=== PATIENT | male | born 1995 | race Caucasian/White ===

== ENCOUNTER 2016-06-14 17:19 | Emergency (ER) | payer OTHER ==
--- NOTE | 2016-06-14 17:51 | ED NURSING NOTES ---
Clinical Report - Nurses [facility] [address] [place] [address] 06/14/2016 17:21 Patient: JEREMY GREER TRIAGE Triage time 1740 PM. Acuity: LEVEL 4. Chief Complaint: (possible infection on right ankle and left toes and left hand). Alert. No acute distress. SEPSIS SCREEN: Sepsis Screen. Negative (no infection suspected/documented). --17:47 Kari Escobar R.N. 17:39 06/14/16. BP: 124/78 taken on the left arm, via an automated monitor, while sitting. HR: 100. RR: 16. O2 saturation: 100%. Temp: 98.2 F (oral). Pain level now: 5/10. --17:47 Kari Escobar R.N. Weight: 74.8 kg stated. Height/Length: 75 inches Per Patient. BMI: 20.6. --17:41 Kari Escobar R.N. Medications None. --17:42 Kari Escobar R.N. Allergies No Known Drug Allergy. --17:42 Kari Escobar R.N. Medication/allergy information source: the patient. --17:47 Kari Escobar R.N. History Arrived by private vehicle. Historian: patient. Primary physician (none). ( Pt states this happened about 1 1/2 weeks ago after released after [facility], noted that right ankle started getting swollen and red, afraid he has MRSA, denies any fever or chills. Here for evaluation). Onset. (1 weeks). No fever, weakness, cough, difficulty breathing or skin rash. Denies muscle aches. Treatment RECREATION ATTENDANT SUPERVISOR: None. PAST MEDICAL HX: Immunizations: status is unknown. SOCIAL HX: Current every day light tobacco smoker- less than 1/2 a pack per day. Occasional alcohol use; consumes liquor occasionally. History of drug use: heroin, marijuana. Recently used drugs days ago. (2). No infectious disease exposure. FALL RISK ASSESSMENT: Fall risk assessment completed. No fall risk identified. NUTRITIONAL RISK ASSESSMENT: The nutritional risk assessment revealed no deficiencies. FUNCTIONAL ASSESSMENT: Functional assessment: no impairments noted. LEARNING NEEDS ASSESSMENT: The learning needs assessment revealed no barriers. SKIN INTEGRITY ASSESSMENT: Skin integrity risk assessment completed. No skin integrity risk identified. --17:47 Kari Escobar R.N. PROBLEMS: no known problems. ADDITIONAL SURGERIES: Knee Surgery. --17:43 Kari Escobar R.N. Interventions ID band on patient. --17:47 Kari Escobar R.N. PHYSICAL ASSESSMENT Ambulatory to room. GENERAL / NEURO / PSYCH: Alert. Oriented X 4. Appears in no acute distress. RESPIRATORY: Respirations not labored. SKIN: Skin intact. Skin is warm and dry. Normal skin turgor. --17:48 Kari Escobar R.N. NURSING PROGRESS NOTES The initial plan of care for this patient has been created This plan of care was discussed with the patient. Reassurance given. Two patient identifiers checked. Call light placed in reach. Side rails up x 1. Bed placed in lowest position. Brakes of bed on. --17:48 Kari Escobar R.N. 17:57 06/14/2016 Keflex (Cephalexin) PO Tablets 500 mg given. Allergies verified and confirmed 5 rights. --17:57 Kari Escobar R.N. 17:57 06/14/2016 Bactrim DS (Sulfamethoxazole-TMP DS) PO Tablets 1 tab given. Allergies verified and confirmed 5 rights. --17:57 Kari Escobar R.N. 17:58 06/14/2016 TDAP IM 0.5 mL given. (Lot#: [id number], expiration date: 02/04/2017, Cleaning Specialist: sanofi pasteur). Given in the right deltoid. Allergies verified and confirmed 5 rights. Vaccine information statement provided to the patient. --17:58 Kari Escobar R.N. DISPOSITION / DISCHARGE Departure time: 1805 PM. Condition at departure: stable. The goals identified in the patient's plan of care were met. No learning barriers present. Discharge instructions provided and reviewed with the patient. Reviewed warnings. Reviewed medication(s) side effects, precautions, dosing and course information. Prescription(s) given to the patient. Reviewed wound care instructions (warm compresses). Activity restrictions (minimal use of injured extremity and rest) reviewed. Patient verbalized understanding. Written instructions provided in Estonian. No diet instructions. The patient was discharged by the physician assistant inventory manager. He was discharged home and accompanied by spouse. He left the Emergency Department ambulatory and via private vehicle. Cheesemaker Helper driving. FALL RISK ASSESSMENT: Fall risk assessment completed. No fall risk identified. --18:06 Kari Escobar R.N. 18:03 06/14/16. BP: 125/85 (regular adult cuff) taken on the left arm, via an automated monitor, while sitting. HR: 100. RR: 18. O2 saturation: 99% on room air. Temp: 98.2 F (oral). Pain level now: 09/09. --18:06 Kari Escobar R.N. Locked/Released at 06/14/2016 18:07 by Kari Escobar R.N.
--- NOTE | 2016-06-14 17:51 | ED CLINICAL REPORT ---
Clinical Report - Physicians/Mid Levels [facility] [address] [place] [address] 06/14/2016 17:21 Patient: JEREMY GREER Time Seen: 18:23 Jun 14 2016. Arrived- By private vehicle. Historian- patient. HISTORY OF PRESENT ILLNESS Chief Complaint: SKIN RASH. This started 7 days and is still present. It is described as painful. It has been located on the right lower extremity. No cause has been identified. (patient reports recently in long-term, has had a rash since. Denies any drainage. Denies any trauma. Denies any fevers. Denies any history of MRSA, does use drugs.). REVIEW OF SYSTEMS No fever, chills, difficulty breathing, hoarseness or nausea. No difficulty with urination. All systems otherwise negative, except as recorded above. PAST HISTORY Tetanus immunization status is unknown. SOCIAL HISTORY Smoker- current status unknown. Alcohol use. History of IV drug use. ADDITIONAL NOTES The nursing notes have been reviewed. PHYSICAL EXAM Vital Signs: 06/14/2016 17:39 BP: 124/78. HR: 100. RR: 16. O2 saturation: 100%. Temp: 98.2 F. Pain level now: 5/10. ENT: Ears normal. CVS: Normal heart rate and rhythm. Heart sounds normal. Respiratory: No respiratory distress. Breath sounds normal. Skin: Skin warm. Erythema (mild lateral aspect). Small area of cellulitis with tenderness, erythema and warmth (medial aspect of right foot into the plantar surface). There is warmth and tenderness. PROGRESS AND PROCEDURES Course of Care: Signs of cellulites, with good distal sensation, and good pulse. Given recent long-term, concern for MRSA. NO signs of abscess. Stable. NO injury. 06/14/2016 18:03 BP: 125/85. HR: 100. RR: 18. O2 saturation: 99%. Temp: 98.2 F. Pain level now: 5/10. Patient is stable. Patient/family counseled. Disposition: Discharged. CLINICAL IMPRESSION Cellulitis of the right foot. INSTRUCTIONS Prescription Medications: Bactrim DS 800 mg / 160 mg: take 1 tablet orally every 12 hours for 10 days. No refill. Substitution is permissible. Keflex 500 mg: take 1 capsule orally every 8 hours for 10 days. Substitution is permissible. Follow-up: Follow up with your doctor in three days. (Electronically signed by Ambar Mireles P.A.-C 06/14/2016 18:26)
--- NOTE | 2016-06-14 17:51 | ED ORDER SUMMARY ---
..... Patient: JEREMY GREER OrderSheet [facility] VisitID: [id number] [address] [place] [address] 20y, M Registration Date/Time: 06/14/2016 ORDER SHEET Weight: 74.8 kg (stated) Allergies: No Known Drug Allergy GENERAL ORDERS: MEDICATION ORDERS: Bactrim DS PO (Tablet 800-160 mg) 1 tab (NOW) (17:50 06/14/2016 EKoroleva P.A.-C) (17:57 EHkatie R.N.) Keflex PO 500 mg (NOW) (17:50 06/14/2016 EKoroleva P.A.-C) (17:57 EHkatie R.N.) Tdap IM 0.5 mL (NOW, per protocol) (17:50 06/14/2016 EKoroleva P.A.-C) (17:58 EHkatie R.N.) IV FLUIDS: ORDER SHEET NOTES: [Electronically signed by Kari Escobar R.N. (18:07 06/14/2016)] [Electronically signed by Ambar Mireles PDelvisA.-C (18:26 06/14/2016)] [Electronically locked/signed by Kari Escobar R.N. (18:07 06/14/2016)]
--- NOTE | 2016-06-14 17:51 | ED ORDER SUMMARY ---
..... Patient: JEREMY GREER OrderSheet [facility] VisitID: [id number] [address] [place] [address] 20y, M Registration Date/Time: 06/14/2016 ORDER SHEET Weight: 74.8 kg (stated) Allergies: No Known Drug Allergy GENERAL ORDERS: MEDICATION ORDERS: Bactrim DS PO (Tablet 800-160 mg) 1 tab (NOW) (17:50 06/14/2016 EKoroleva P.A.-C) (17:57 EHkatie R.N.) Keflex PO 500 mg (NOW) (17:50 06/14/2016 EKoroleva P.A.-C) (17:57 EHkatie R.N.) Tdap IM 0.5 mL (NOW, per protocol) (17:50 06/14/2016 EKoroleva P.A.-C) (17:58 EHkatie R.N.) IV FLUIDS: ORDER SHEET NOTES: [Electronically signed by Kari Escobar R.N. (18:07 06/14/2016)] [Electronically signed by Ambar Mireles PDelvisA.-C (18:26 06/14/2016)] [Electronically locked/signed by Kari Escobar R.N. (18:07 06/14/2016)]
--- NOTE | 2016-06-14 17:51 | ED NURSING NOTES ---
Clinical Report - Nurses [facility] [address] [place] [address] 06/14/2016 17:21 Patient: JEREMY GREER TRIAGE Triage time 1740 PM. Acuity: LEVEL 4. Chief Complaint: (possible infection on right ankle and left toes and left hand). Alert. No acute distress. SEPSIS SCREEN: Sepsis Screen. Negative (no infection suspected/documented). --17:47 Kari Escobar R.N. 17:39 06/14/16. BP: 124/78 taken on the left arm, via an automated monitor, while sitting. HR: 100. RR: 16. O2 saturation: 100%. Temp: 98.2 F (oral). Pain level now: 5/10. --17:47 Kari Escobar R.N. Weight: 74.8 kg stated. Height/Length: 75 inches Per Patient. BMI: 20.6. --17:41 Kari Escobar R.N. Medications None. --17:42 Kari Escobar R.N. Allergies No Known Drug Allergy. --17:42 Kari Escobar R.N. Medication/allergy information source: the patient. --17:47 Kari Escobar R.N. History Arrived by private vehicle. Historian: patient. Primary physician (none). ( Pt states this happened about 1 1/2 weeks ago after released after [facility], noted that right ankle started getting swollen and red, afraid he has MRSA, denies any fever or chills. Here for evaluation). Onset. (1 weeks). No fever, weakness, cough, difficulty breathing or skin rash. Denies muscle aches. Treatment MORTGAGE ADVISOR: None. PAST MEDICAL HX: Immunizations: status is unknown. SOCIAL HX: Current every day light tobacco smoker- less than 1/2 a pack per day. Occasional alcohol use; consumes liquor occasionally. History of drug use: heroin, marijuana. Recently used drugs days ago. (2). No infectious disease exposure. FALL RISK ASSESSMENT: Fall risk assessment completed. No fall risk identified. NUTRITIONAL RISK ASSESSMENT: The nutritional risk assessment revealed no deficiencies. FUNCTIONAL ASSESSMENT: Functional assessment: no impairments noted. LEARNING NEEDS ASSESSMENT: The learning needs assessment revealed no barriers. SKIN INTEGRITY ASSESSMENT: Skin integrity risk assessment completed. No skin integrity risk identified. --17:47 Kari Escobar R.N. PROBLEMS: no known problems. ADDITIONAL SURGERIES: Knee Surgery. --17:43 Kari Escobar R.N. Interventions ID band on patient. --17:47 Kari Escobar R.N. PHYSICAL ASSESSMENT Ambulatory to room. GENERAL / NEURO / PSYCH: Alert. Oriented X 4. Appears in no acute distress. RESPIRATORY: Respirations not labored. SKIN: Skin intact. Skin is warm and dry. Normal skin turgor. --17:48 Kari Escobar R.N. NURSING PROGRESS NOTES The initial plan of care for this patient has been created This plan of care was discussed with the patient. Reassurance given. Two patient identifiers checked. Call light placed in reach. Side rails up x 1. Bed placed in lowest position. Brakes of bed on. --17:48 Kari Escobar R.N. 17:57 06/14/2016 Keflex (Cephalexin) PO Tablets 500 mg given. Allergies verified and confirmed 5 rights. --17:57 Kari Escobar R.N. 17:57 06/14/2016 Bactrim DS (Sulfamethoxazole-TMP DS) PO Tablets 1 tab given. Allergies verified and confirmed 5 rights. --17:57 Kari Escobar R.N. 17:58 06/14/2016 TDAP IM 0.5 mL given. (Lot#: [id number], expiration date: 02/04/2017, Captain Room Service: sanofi pasteur). Given in the right deltoid. Allergies verified and confirmed 5 rights. Vaccine information statement provided to the patient. --17:58 Kari Escobar R.N. DISPOSITION / DISCHARGE Departure time: 1805 PM. Condition at departure: stable. The goals identified in the patient's plan of care were met. No learning barriers present. Discharge instructions provided and reviewed with the patient. Reviewed warnings. Reviewed medication(s) side effects, precautions, dosing and course information. Prescription(s) given to the patient. Reviewed wound care instructions (warm compresses). Activity restrictions (minimal use of injured extremity and rest) reviewed. Patient verbalized understanding. Written instructions provided in Bengali. No diet instructions. The patient was discharged by the physician assistant warehouse manager. He was discharged home and accompanied by spouse. He left the Emergency Department ambulatory and via private vehicle. Log Yard Manager driving. FALL RISK ASSESSMENT: Fall risk assessment completed. No fall risk identified. --18:06 Kari Escobar R.N. 18:03 06/14/16. BP: 125/85 (regular adult cuff) taken on the left arm, via an automated monitor, while sitting. HR: 100. RR: 18. O2 saturation: 99% on room air. Temp: 98.2 F (oral). Pain level now: 09/09. --18:06 Kari Escobar R.N. Locked/Released at 06/14/2016 18:07 by Kari Escobar R.N.
--- NOTE | 2016-06-14 17:51 | ED CLINICAL REPORT ---
Clinical Report - Physicians/Mid Levels [facility] [address] [place] [address] 06/14/2016 17:21 Patient: JEREMY GREER Time Seen: 18:23 Jun 14 2016. Arrived- By private vehicle. Historian- patient. HISTORY OF PRESENT ILLNESS Chief Complaint: SKIN RASH. This started 7 days and is still present. It is described as painful. It has been located on the right lower extremity. No cause has been identified. (patient reports recently in fpc, has had a rash since. Denies any drainage. Denies any trauma. Denies any fevers. Denies any history of MRSA, does use drugs.). REVIEW OF SYSTEMS No fever, chills, difficulty breathing, hoarseness or nausea. No difficulty with urination. All systems otherwise negative, except as recorded above. PAST HISTORY Tetanus immunization status is unknown. SOCIAL HISTORY Smoker- current status unknown. Alcohol use. History of IV drug use. ADDITIONAL NOTES The nursing notes have been reviewed. PHYSICAL EXAM Vital Signs: 06/14/2016 17:39 BP: 124/78. HR: 100. RR: 16. O2 saturation: 100%. Temp: 98.2 F. Pain level now: 5/10. ENT: Ears normal. CVS: Normal heart rate and rhythm. Heart sounds normal. Respiratory: No respiratory distress. Breath sounds normal. Skin: Skin warm. Erythema (mild lateral aspect). Small area of cellulitis with tenderness, erythema and warmth (medial aspect of right foot into the plantar surface). There is warmth and tenderness. PROGRESS AND PROCEDURES Course of Care: Signs of cellulites, with good distal sensation, and good pulse. Given recent fpc, concern for MRSA. NO signs of abscess. Stable. NO injury. 06/14/2016 18:03 BP: 125/85. HR: 100. RR: 18. O2 saturation: 99%. Temp: 98.2 F. Pain level now: 5/10. Patient is stable. Patient/family counseled. Disposition: Discharged. CLINICAL IMPRESSION Cellulitis of the right foot. INSTRUCTIONS Prescription Medications: Bactrim DS 800 mg / 160 mg: take 1 tablet orally every 12 hours for 10 days. No refill. Substitution is permissible. Keflex 500 mg: take 1 capsule orally every 8 hours for 10 days. Substitution is permissible. Follow-up: Follow up with your doctor in three days. (Electronically signed by Ambar Mireles P.A.-C 06/14/2016 18:26)
--- NOTE | 2016-06-14 18:26 | ED DISCHARGE INSTRUCTIONS ---
Patient: JEREMY GREER General Instructions [facility] VisitID: [id number] [place] [address] 20y, M Registration Date/Time: 06/14/2016 Cellulitis of the right foot. INSTRUCTIONS Prescription Medications: Bactrim DS 800 mg / 160 mg: take 1 tablet orally every 12 hours for 10 days. No refill. Substitution is permissible. Keflex 500 mg: take 1 capsule orally every 8 hours for 10 days. Substitution is permissible. Follow-up: Follow up with your doctor in three days. ADDITIONAL INFORMATION Cellulitis You have an infection of the skin known as cellulitis. This usually starts with a scrape, cut, insect bite, blister or other opening in the skin which becomes infected. This is a serious condition. It must be watched closely to be sure the infection is not spreading. With antibiotic treatment, the size of the red area will gradually shrink in size until the skin returns to normal. This will take 7-10 days. The red area should never increase in size once the antibiotic medicine has been started. Occasionally, an infection will be resistant to one antibiotic and another one will have to be used. Home Care: 1) Limit the use of the affected part, since excess movement can cause the infection to spread. 2) If the infection is on your leg, walk as little as possible during the first few days of the treatment. Keep your leg elevated while sitting. This will reduce swelling. 3) Take all of the antibiotic medicine exactly as directed until it is gone. Be careful not to miss any doses, especially during the first seven days. Follow Up with your doctor or this facility as directed. Check the infected area daily for the warning signs listed below. Get Prompt Medical Attention if any of the following occur: -- Spreading area of redness -- Increasing swelling or pain -- Appearance of pus or drainage -- Fever over 100.4 F (38.0 C) oral, or over 101.4 F (38.6 C) rectal, after two days on antibiotics Sulfamethoxazole, Trimethoprim Oral tablet What is this medicine? SULFAMETHOXAZOLE; TRIMETHOPRIM or SMX-TMP (suhl fuh meth OK margarita zohl; trye METH oh prim) is a combination of a sulfonamide antibiotic and a second antibiotic, trimethoprim. It is used to treat or prevent certain kinds of bacterial infections. It will not work for colds, flu, or other viral infections. How should I use this medicine? Take this medicine by mouth with a full glass of water. Follow the directions on the prescription label. Take your medicine at regular intervals. Do not take it more often than directed. Do not skip doses or stop your medicine early. Talk to your manager background regarding the use of this medicine in children. Special care may be needed. This medicine has been used in children as young as 2 months of age. What side effects may I notice from receiving this medicine? Side effects that you should report to your doctor or health customer care consultant as soon as possible: allergic reactions like skin rash or hives, swelling of the face, lips, or tongue breathing problems fever or chills, sore throat irregular heartbeat, chest pain joint or muscle pain pain or difficulty passing urine red pinpoint spots on skin redness, blistering, peeling or loosening of the skin, including inside the mouth unusual bleeding or bruising unusually weak or tired yellowing of the eyes or skin Side effects that usually do not require medical attention (report to your doctor or health customer care consultant if they continue or are bothersome): diarrhea dizziness headache loss of appetite nausea, vomiting nervousness What may interact with this medicine? Do not take this medicine with any of the following medications: aminobenzoate potassium dofetilide metronidazole This medicine may also interact with the following medications: EWA inhibitors like benazepril, enalapril, lisinopril, and ramipril cyclosporine digoxin diuretics indomethacin medicines for diabetes methenamine methotrexate phenytoin potassium supplements pyrimethamine sulfinpyrazone tricyclic antidepressants warfarin What if I miss a dose? If you miss a dose, take it as soon as you can. If it is almost time for your next dose, take only that dose. Do not take double or extra doses. Where should I keep my medicine? Keep out of the reach of children. Store at room temperature between 20 to 25 degrees C (68 to 77 degrees F). Protect from light. Throw away any unused medicine after the expiration date. What should I tell my health care provider before I take this medicine? They need to know if you have any of these conditions: anemia asthma being treated with anticonvulsants if you frequently drink alcohol containing drinks kidney disease liver disease low level of folic acid or oztsecl-1-jekullrop dehydrogenase poor nutrition or malabsorption porphyria severe allergies thyroid disorder an unusual or allergic reaction to sulfamethoxazole, trimethoprim, sulfa drugs, other medicines, foods, dyes, or preservatives or trying to get breast-feeding What should I watch for while using this medicine? Tell your doctor or health customer care consultant if your symptoms do not improve. Drink several glasses of water a day to reduce the risk of kidney problems. Do not treat diarrhea with over the counter products. Contact your doctor if you have diarrhea that lasts more than 2 days or if it is severe and watery. This medicine can make you more sensitive to the sun. Keep out of the sun. If you cannot avoid being in the sun, wear protective clothing and use a sunscreen. Do not use sun lamps or tanning beds/booths. Cephalexin Monohydrate Oral tablet What is this medicine? CEPHALEXIN (sef a ANTONIO in) is a cephalosporin antibiotic. It is used to treat certain kinds of bacterial infections It will not work for colds, flu, or other viral infections. How should I use this medicine? Take this medicine by mouth with a full glass of water. Follow the directions on the prescription label. This medicine can be taken with or without food. Take your medicine at regular intervals. Do not take your medicine more often than directed. Take all of your medicine as directed even if you think you are better. Do not skip doses or stop your medicine early. Talk to your manager background regarding the use of this medicine in children. While this drug may be prescribed for selected conditions, precautions do apply. What side effects may I notice from receiving this medicine? Side effects that you should report to your doctor or health customer care consultant as soon as possible: allergic reactions like skin rash, itching or hives, swelling of the face, lips, or tongue breathing problems pain or trouble passing urine redness, blistering, peeling or loosening of the skin, including inside the mouth severe or watery diarrhea unusually weak or tired yellowing of the eyes, skin Side effects that usually do not require medical attention (report to your doctor or health customer care consultant if they continue or are bothersome): gas or heartburn genital or anal irritation headache joint or muscle pain nausea, vomiting What may interact with this medicine? probenecid some other antibiotics What if I miss a dose? If you miss a dose, take it as soon as you can. If it is almost time for your next dose, take only that dose. Do not take double or extra doses. There should be at least 4 to 6 hours between doses. Where should I keep my medicine? Keep out of the reach of children. Store at room temperature between 59 and 86 degrees F (15 and 30 degrees C). Throw away any unused medicine after the expiration date. What should I tell my health care provider before I take this medicine? They need to know if you have any of these conditions: kidney disease stomach or intestine problems, especially colitis an unusual or allergic reaction to cephalexin, other cephalosporins, penicillins, other antibiotics, medicines, foods, dyes or preservatives or trying to get breast-feeding What should I watch for while using this medicine? Tell your doctor or health customer care consultant if your symptoms do not begin to improve in a few days. Do not treat diarrhea with over the counter products. Contact your doctor if you have diarrhea that lasts more than 2 days or if it is severe and watery. If you have diabetes, you may get a false-positive result for sugar in your urine. Check with your doctor or health customer care consultant. You have been given the following additional information: Cellulitis Sulfamethoxazole, Trimethoprim Oral tablet Cephalexin Monohydrate Oral tablet (Electronically signed by Ambar Mireles P.A.-C 06/14/2016 18:26)
--- NOTE | 2016-06-14 18:26 | ED DISCHARGE INSTRUCTIONS ---
Patient: JEREMY GREER General Instructions [facility] VisitID: [id number] [place] [address] 20y, M Registration Date/Time: 06/14/2016 Cellulitis of the right foot. INSTRUCTIONS Prescription Medications: Bactrim DS 800 mg / 160 mg: take 1 tablet orally every 12 hours for 10 days. No refill. Substitution is permissible. Keflex 500 mg: take 1 capsule orally every 8 hours for 10 days. Substitution is permissible. Follow-up: Follow up with your doctor in three days. ADDITIONAL INFORMATION Cellulitis You have an infection of the skin known as cellulitis. This usually starts with a scrape, cut, insect bite, blister or other opening in the skin which becomes infected. This is a serious condition. It must be watched closely to be sure the infection is not spreading. With antibiotic treatment, the size of the red area will gradually shrink in size until the skin returns to normal. This will take 7-10 days. The red area should never increase in size once the antibiotic medicine has been started. Occasionally, an infection will be resistant to one antibiotic and another one will have to be used. Home Care: 1) Limit the use of the affected part, since excess movement can cause the infection to spread. 2) If the infection is on your leg, walk as little as possible during the first few days of the treatment. Keep your leg elevated while sitting. This will reduce swelling. 3) Take all of the antibiotic medicine exactly as directed until it is gone. Be careful not to miss any doses, especially during the first seven days. Follow Up with your doctor or this facility as directed. Check the infected area daily for the warning signs listed below. Get Prompt Medical Attention if any of the following occur: -- Spreading area of redness -- Increasing swelling or pain -- Appearance of pus or drainage -- Fever over 100.4 F (38.0 C) oral, or over 101.4 F (38.6 C) rectal, after two days on antibiotics Sulfamethoxazole, Trimethoprim Oral tablet What is this medicine? SULFAMETHOXAZOLE; TRIMETHOPRIM or SMX-TMP (suhl fuh meth OK margarita zohl; trye METH oh prim) is a combination of a sulfonamide antibiotic and a second antibiotic, trimethoprim. It is used to treat or prevent certain kinds of bacterial infections. It will not work for colds, flu, or other viral infections. How should I use this medicine? Take this medicine by mouth with a full glass of water. Follow the directions on the prescription label. Take your medicine at regular intervals. Do not take it more often than directed. Do not skip doses or stop your medicine early. Talk to your pigment grinder regarding the use of this medicine in children. Special care may be needed. This medicine has been used in children as young as 2 months of age. What side effects may I notice from receiving this medicine? Side effects that you should report to your doctor or health medicare specialist as soon as possible: allergic reactions like skin rash or hives, swelling of the face, lips, or tongue breathing problems fever or chills, sore throat irregular heartbeat, chest pain joint or muscle pain pain or difficulty passing urine red pinpoint spots on skin redness, blistering, peeling or loosening of the skin, including inside the mouth unusual bleeding or bruising unusually weak or tired yellowing of the eyes or skin Side effects that usually do not require medical attention (report to your doctor or health medicare specialist if they continue or are bothersome): diarrhea dizziness headache loss of appetite nausea, vomiting nervousness What may interact with this medicine? Do not take this medicine with any of the following medications: aminobenzoate potassium dofetilide metronidazole This medicine may also interact with the following medications: EWA inhibitors like benazepril, enalapril, lisinopril, and ramipril cyclosporine digoxin diuretics indomethacin medicines for diabetes methenamine methotrexate phenytoin potassium supplements pyrimethamine sulfinpyrazone tricyclic antidepressants warfarin What if I miss a dose? If you miss a dose, take it as soon as you can. If it is almost time for your next dose, take only that dose. Do not take double or extra doses. Where should I keep my medicine? Keep out of the reach of children. Store at room temperature between 20 to 25 degrees C (68 to 77 degrees F). Protect from light. Throw away any unused medicine after the expiration date. What should I tell my health care provider before I take this medicine? They need to know if you have any of these conditions: anemia asthma being treated with anticonvulsants if you frequently drink alcohol containing drinks kidney disease liver disease low level of folic acid or [id number] dehydrogenase poor nutrition or malabsorption porphyria severe allergies thyroid disorder an unusual or allergic reaction to sulfamethoxazole, trimethoprim, sulfa drugs, other medicines, foods, dyes, or preservatives or trying to get breast-feeding What should I watch for while using this medicine? Tell your doctor or health medicare specialist if your symptoms do not improve. Drink several glasses of water a day to reduce the risk of kidney problems. Do not treat diarrhea with over the counter products. Contact your doctor if you have diarrhea that lasts more than 2 days or if it is severe and watery. This medicine can make you more sensitive to the sun. Keep out of the sun. If you cannot avoid being in the sun, wear protective clothing and use a sunscreen. Do not use sun lamps or tanning beds/booths. Cephalexin Monohydrate Oral tablet What is this medicine? CEPHALEXIN (sef a ANTONIO in) is a cephalosporin antibiotic. It is used to treat certain kinds of bacterial infections It will not work for colds, flu, or other viral infections. How should I use this medicine? Take this medicine by mouth with a full glass of water. Follow the directions on the prescription label. This medicine can be taken with or without food. Take your medicine at regular intervals. Do not take your medicine more often than directed. Take all of your medicine as directed even if you think you are better. Do not skip doses or stop your medicine early. Talk to your pigment grinder regarding the use of this medicine in children. While this drug may be prescribed for selected conditions, precautions do apply. What side effects may I notice from receiving this medicine? Side effects that you should report to your doctor or health medicare specialist as soon as possible: allergic reactions like skin rash, itching or hives, swelling of the face, lips, or tongue breathing problems pain or trouble passing urine redness, blistering, peeling or loosening of the skin, including inside the mouth severe or watery diarrhea unusually weak or tired yellowing of the eyes, skin Side effects that usually do not require medical attention (report to your doctor or health medicare specialist if they continue or are bothersome): gas or heartburn genital or anal irritation headache joint or muscle pain nausea, vomiting What may interact with this medicine? probenecid some other antibiotics What if I miss a dose? If you miss a dose, take it as soon as you can. If it is almost time for your next dose, take only that dose. Do not take double or extra doses. There should be at least 4 to 6 hours between doses. Where should I keep my medicine? Keep out of the reach of children. Store at room temperature between 59 and 86 degrees F (15 and 30 degrees C). Throw away any unused medicine after the expiration date. What should I tell my health care provider before I take this medicine? They need to know if you have any of these conditions: kidney disease stomach or intestine problems, especially colitis an unusual or allergic reaction to cephalexin, other cephalosporins, penicillins, other antibiotics, medicines, foods, dyes or preservatives or trying to get breast-feeding What should I watch for while using this medicine? Tell your doctor or health medicare specialist if your symptoms do not begin to improve in a few days. Do not treat diarrhea with over the counter products. Contact your doctor if you have diarrhea that lasts more than 2 days or if it is severe and watery. If you have diabetes, you may get a false-positive result for sugar in your urine. Check with your doctor or health medicare specialist. You have been given the following additional information: Cellulitis Sulfamethoxazole, Trimethoprim Oral tablet Cephalexin Monohydrate Oral tablet (Electronically signed by Ambar Mireles P.A.-C 06/14/2016 18:26)
--- NOTE | 2016-06-14 18:27 | ED MED RECONCILIATION SUMMARY ---
Patient: JEREMY GREER Medication Reconciliation Report [facility] VisitID: [id number] [address] [place] [address] 20y, M Registration Date/Time: 06/14/2016 Weight: 74.8 kg Height/Length: 75 in. BMI: 20.6 ALLERGIES: No Known Drug Allergy The patient's Home Medications are listed below: NONE. The source(s) of the original Home Medication information: patient The following Medications were given to the patient in the Emergency Department: Keflex [PO] PO 500 mg, administered: 06/14/2016 5:57:00 PM Bactrim DS [PO] PO 1 tab, administered: 06/14/2016 5:57:00 PM TDAP [IM] IM 0.5 mL, administered: 06/14/2016 5:58:00 PM The following Medications were prescribed to the patient: Bactrim DS 800 mg / 160 mg: take 1 tablet orally every 12 hours for 10 days. No refill. Substitution is permissible. -- Ambar Mireles PDelvisADelvis-Carol Keflex 500 mg: take 1 capsule orally every 8 hours for 10 days. Substitution is permissible. -- Ambar Mireles P.ADelvis-Carol
--- NOTE | 2016-06-14 18:27 | ED MAR SUMMARY ---
..... Medication Administration Record [facility] [address] [place] [address] Patient: JEREMY GREER Visit ID: [id number] 20y, M Weight: 74.8 kg Height/Length: 75 in BMI: 20.6 ALLERGIES: No Known Drug Allergy Given 17:57 06/14/2016 Kari Escobar RDelvisNDelvis Medication Administered: BACTRIM DS [PO] (SULFAMETHOXAZOLE-TMP DS), Dose: 1 tab Tablets PO. Medication Ordered: Bactrim DS PO (Tablet 800-160 mg) 1 tab (NOW). Given 17:57 06/14/2016 Kari Escobar, R.N. Medication Administered: KEFLEX [PO] (CEPHALEXIN), Dose: 500 mg Tablets PO. Medication Ordered: Keflex PO 500 mg (NOW). Given 17:58 06/14/2016 Kari Escobar, R.N. Medication Administered: TDAP [IM], Dose: 0.5 mL IM. Medication Ordered: Tdap IM 0.5 mL (NOW, per protocol).
--- NOTE | 2016-06-14 18:27 | ED MAR SUMMARY ---
..... Medication Administration Record [facility] [address] [place] [address] Patient: JEREMY GREER Visit ID: [id number] 20y, M Weight: 74.8 kg Height/Length: 75 in BMI: 20.6 ALLERGIES: No Known Drug Allergy Given 17:57 06/14/2016 Kari Escobar RDelvisNDelvis Medication Administered: BACTRIM DS [PO] (SULFAMETHOXAZOLE-TMP DS), Dose: 1 tab Tablets PO. Medication Ordered: Bactrim DS PO (Tablet 800-160 mg) 1 tab (NOW). Given 17:57 06/14/2016 Kari Escobar, R.N. Medication Administered: KEFLEX [PO] (CEPHALEXIN), Dose: 500 mg Tablets PO. Medication Ordered: Keflex PO 500 mg (NOW). Given 17:58 06/14/2016 Kari Escobar, R.N. Medication Administered: TDAP [IM], Dose: 0.5 mL IM. Medication Ordered: Tdap IM 0.5 mL (NOW, per protocol).
--- NOTE | 2016-06-14 18:27 | ED MED RECONCILIATION SUMMARY ---
Patient: JEREMY GREER Medication Reconciliation Report [facility] VisitID: [id number] [address] [place] [address] 20y, M Registration Date/Time: 06/14/2016 Weight: 74.8 kg Height/Length: 75 in. BMI: 20.6 ALLERGIES: No Known Drug Allergy The patient's Home Medications are listed below: NONE. The source(s) of the original Home Medication information: patient The following Medications were given to the patient in the Emergency Department: Keflex [PO] PO 500 mg, administered: 06/14/2016 5:57:00 PM Bactrim DS [PO] PO 1 tab, administered: 06/14/2016 5:57:00 PM TDAP [IM] IM 0.5 mL, administered: 06/14/2016 5:58:00 PM The following Medications were prescribed to the patient: Bactrim DS 800 mg / 160 mg: take 1 tablet orally every 12 hours for 10 days. No refill. Substitution is permissible. -- Ambar Mireles PDelvisADelvis-Carol Keflex 500 mg: take 1 capsule orally every 8 hours for 10 days. Substitution is permissible. -- Ambar Mireles P.ADelvis-Caorl
== END 2016-06-14 18:05 | disposition home or self-care (01) ==
LOC: ED SRH 17:19
DX: L03.115 Cellulitis of right lower limb (principal); F17.210 Nicotine dependence, cigarettes, uncomplicated

== ENCOUNTER 2016-06-20 18:02 | Emergency (ER) | payer OTHER ==
--- NOTE | 2016-06-20 18:16 | ED NURSING NOTES ---
Clinical Report - Nurses [facility] [address] [place] [address] 06/20/2016 18:02 Patient: JEREMY GREER TRIAGE Triage time 18:Jun 20 2016. Acuity: LEVEL 4. Chief Complaint: laceration L hand. --18:11 Vijay Mahan R.N. 18:08 06/20/16. BP: 129/76. HR: 91. RR: 18. O2 saturation: 99%. Temp: 98.5 F. Pain level now /10. --18:11 Vijay Mahan R.N. Weight: 81.6 kg estimated. Height/Length: 72 inches Estimated. BMI: 24.4. --18:09 Vijay Mahan R.N. Medications None. --18:09 Vijay Mahan R.N. Allergies No Known Drug Allergy. --18:09 Vijay Mahan R.N. History Arrived by private vehicle. This started just prior to arrival. SOCIAL HX: Heavy tobacco smoker. No alcohol use or drug use. --18:11 Vijay Mahan R.N. Interventions ID band on patient. To treatment room. --18:11 Vijay Mahan R.N. NURSING PROGRESS NOTES ( wound cleaned steri strips applied and clean dressing placed). --18:35 Vijay Mahan R.N. DISPOSITION / DISCHARGE Departure time: 1830. Condition at departure: improved. Discharge instructions provided and reviewed with the patient. Reviewed medication(s) side effects information. The patient was discharged by the nurse practitioner. He was discharged home and accompanied by family. He left the Emergency Department ambulatory and via private vehicle. Family member driving. ( Pt ambulated on discharge steady on his feet pt verbalized understanding of follow up care and home treatment). --18:38 Vijay Mahan R.N. 18:35 06/20/16. BP: 129/76. HR: 81. RR: 20. O2 saturation: 100%. Temp: 97.9 F. Pain level now 5/10. --18:38 Vijay Mahan R.N. Locked/Released at 06/20/2016 19:29 by Vijay Mahan R.N.
--- NOTE | 2016-06-20 18:16 | ED NURSING NOTES ---
Clinical Report - Nurses [facility] [address] [place] [address] 06/20/2016 18:02 Patient: JEREMY GREER TRIAGE Triage time 18:Jun 20 2016. Acuity: LEVEL 4. Chief Complaint: laceration L hand. --18:11 Vijay Mahan R.N. 18:08 06/20/16. BP: 129/76. HR: 91. RR: 18. O2 saturation: 99%. Temp: 98.5 F. Pain level now /10. --18:11 Vijay Mahan R.N. Weight: 81.6 kg estimated. Height/Length: 72 inches Estimated. BMI: 24.4. --18:09 Vijay Mahan R.N. Medications None. --18:09 Vijay Mahan R.N. Allergies No Known Drug Allergy. --18:09 Vijay Mahan R.N. History Arrived by private vehicle. This started just prior to arrival. SOCIAL HX: Heavy tobacco smoker. No alcohol use or drug use. --18:11 Vijay Mahan R.N. Interventions ID band on patient. To treatment room. --18:11 Vijay Mahan R.N. NURSING PROGRESS NOTES ( wound cleaned steri strips applied and clean dressing placed). --18:35 Vijay Mahan R.N. DISPOSITION / DISCHARGE Departure time: 1830. Condition at departure: improved. Discharge instructions provided and reviewed with the patient. Reviewed medication(s) side effects information. The patient was discharged by the nurse practitioner. He was discharged home and accompanied by family. He left the Emergency Department ambulatory and via private vehicle. Family member driving. ( Pt ambulated on discharge steady on his feet pt verbalized understanding of follow up care and home treatment). --18:38 Vijay Mahan R.N. 18:35 06/20/16. BP: 129/76. HR: 81. RR: 20. O2 saturation: 100%. Temp: 97.9 F. Pain level now 5/10. --18:38 Vijay Mahan R.N. Locked/Released at 06/20/2016 19:29 by Vijay Mahan R.N.
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
--- NOTE | 2016-06-20 19:35 | ED MAR SUMMARY ---
..... Medication Administration Record [facility] [address] [place], [place] [id number] Patient: JEREMY GREER Visit ID: [id number] 20y, M Weight: 81.6 kg Height/Length: 72 in BMI: 24.4 ALLERGIES: No Known Drug Allergy
--- NOTE | 2016-06-20 19:35 | ED MAR SUMMARY ---
..... Medication Administration Record [facility] [address] [place], [place] [id number] Patient: JEREMY GREER Visit ID: [id number] 20y, M Weight: 81.6 kg Height/Length: 72 in BMI: 24.4 ALLERGIES: No Known Drug Allergy
--- NOTE | 2016-06-20 19:35 | ED MED RECONCILIATION SUMMARY ---
Patient: JEREMY GREER Medication Reconciliation Report [facility] VisitID: [id number] [address] [place] [address] 20y, M Registration Date/Time: 06/20/2016 Weight: 81.6 kg Height/Length: 72 in. BMI: 24.4 ALLERGIES: No Known Drug Allergy The patient's Home Medications are listed below: NONE. The source(s) of the original Home Medication information: Not obtained. The following Medications were given to the patient in the Emergency Department: None. The following Medications were prescribed to the patient: None.
--- NOTE | 2016-06-20 19:35 | ED MED RECONCILIATION SUMMARY ---
Patient: JEREMY GREER Medication Reconciliation Report [facility] VisitID: [id number] [address] [place] [address] 20y, M Registration Date/Time: 06/20/2016 Weight: 81.6 kg Height/Length: 72 in. BMI: 24.4 ALLERGIES: No Known Drug Allergy The patient's Home Medications are listed below: NONE. The source(s) of the original Home Medication information: Not obtained. The following Medications were given to the patient in the Emergency Department: None. The following Medications were prescribed to the patient: None.
--- NOTE | 2016-06-20 19:35 | ED DISCHARGE INSTRUCTIONS ---
Patient: JEREMY GREER General Instructions [facility] VisitID: [id number] [place] [address] 20y, M Registration Date/Time: 06/20/2016 Single superficial laceration to the left hand.Treatment of laceration not delayed. No infection or foreign body present. INSTRUCTIONS Protect wound and keep wound area clean. Change dressing twice daily. Soak in warm soapy water twice daily. Apply bacitracin twice daily. Warnings: GENERAL WARNINGS: Return or contact your physician immediately if your condition worsens or changes unexpectedly, if not improving as expected, or if other problems arise. Specifically return if problem worsens. Follow-up: Follow up with your doctor in about three days as needed and for wound check. Call for an appointment. Summary of care provided to patient. Understanding of the discharge instructions verbalized by patient. ADDITIONAL INFORMATION Laceration (All Closures) Alaceration is a cut through the skin. This will usually require stitches (sutures) or randy if it is deep. Minor cuts may be treated with a surgical tape closure orskin glue. Home care The following guidelines will help you care for your laceration at home: Extremity, face, or trunk wounds Keep the wound clean and dry. If a bandage was applied and it becomes wet or dirty, replace it. Otherwise, leave it in place for the first 24 hours. If stitches or ranyd were used, clean the wound daily. After removing the bandage, wash the area with soap and water. Use a wet cotton swab to loosen and remove any blood or crust that forms. The doctor may prescribe an antibiotic cream or ointment to prevent infection. Do not stop taking this medication until you have finished the prescribed course or the doctor tells you to stop. The doctor may also prescribe medications for pain. Follow the doctors instructions for taking these medications. You may remove the bandage to shower as usual after the first 24 hours, but do not soak the area in water (no swimming) until the stitches or randy are removed. If surgical tape was used, keep the area clean and dry. If it becomes wet, blot it dry with a towel. If skin glue was used, do not scratch, rub, or pick at the adhesive film. Do not place tape directly over the film. Do not apply liquid, ointment, or creams to the wound while the film is in place. Do not clean the wound with peroxide and do not apply ointments. Avoid activities that cause heavy sweating until the film has fallen off. Protect the wound from prolonged exposure to sunlight or tanning lamps. You may shower as usual but do not soak the wound in water (no baths or swimming). The film will fall off by itself in 510 days. Scalp wounds During the first two days, you may carefully rinse your hair in the shower to remove blood, glass or dirt particles. After two days, you may shower and shampoo your hair normally. Do not soak your scalp in the tub or go swimming until the stitches or randy have been removed. Talk with your doctor before applying any antibiotic ointment to the wound. Mouth wounds Eat soft foods to reduce pain. If the cut is inside of your mouth, clean by rinsing after each meal and at bedtime with a mixture of equal parts water and hydrogen peroxide (do not swallow!). Or, you can use a cotton swab to directly apply hydrogen peroxide onto the cut. Mouth wounds can be painful when eating. You may use an [id number] local numbing solution for pain relief. If this is not available, you may use any numbing solution for teething babies. You may apply this directly to the sores with a cotton-tip swab or with your finger. Follow-up care Follow up with your health care provider. Most skin wounds heal within ten days. Mouth and facial wounds heal within five days. However, even with proper treatment, a wound infection may sometimes occur. Therefore, you should check the wound daily for signs of infection listed below. Stitches should be removed from the face within five days; stitches and randy should be removed from other parts of the body within 714 days. If dissolving stitches were used in the mouth, these will fall out or dissolve without the need for removal. If tape closures were used, remove them yourself if they have not fallen off after 7 days. Ifskin glue was used, the film will fall off by itself in 510 days. When to seek medical care Get prompt medical attention if any of these occur: Bleeding not controlled by direct pressure Signs of infection, including increasing pain in the wound, increasing wound redness or swelling, or pus coming from the wound Fever of 100.4F (38C) or higher, or as directed by your health care provider Stitches or randy come apart or fall out or surgical tape falls off before 7 days Wound edges re-open Laceration, Extremity (Sutures, Randy, Or Tape) A laceration is a cut through the skin. This will usually require stitches (sutures) or randy if it is deep. Minor cuts may be treated with surgical tape closures. Home care The following guidelines will help you care for your laceration at home: Keep the wound clean and dry. If a bandage was applied and it becomes wet or dirty, replace it. Otherwise, leave it in place for the first 24 hours, then change it once a day or as directed. If stitches or randy were used, clean the wound daily: After removing the bandage, wash the area with soap and water. Use a wet cotton swab to loosen and remove any blood or crust that forms. After cleaning, keep the wound clean and dry. Talk with your doctor before applying any antibiotic ointment to the wound. Reapply the bandage. You may remove the bandage to shower as usual after the first 24 hours, but do not soak the area in water (no swimming) until the stitches or randy are removed. If surgical tape closures were used, keep the area clean and dry. If it becomes wet, blot it dry with a towel. The doctor may prescribe an antibiotic cream or ointment to prevent infection. Do not stop taking this medication until you have finished the prescribed course or the doctor tells you to stop. The doctor may also prescribe medications for pain. Follow the doctors instructions for taking these medications. If you have chronic liver or kidney disease or ever had a stomach ulcer or GI bleeding, talk with your doctor before using these medicines. Follow-up care Follow up with your health care provider. Most skin wounds heal within ten days. However, an infection may sometimes occur despite proper treatment. Therefore, check the wound daily for the signs of infection listed below. Stitches and randy should be removed within 714 days. If surgical tape closures were used, you may remove them after 10 days, if they have not fallen off by then. Notify your doctor if you notice persistent numbness or weakness in the injured extremity. (Note:A radiologist will review any X-rays that were taken. We will notify you of any new findings that may affect your care.) When to seek medical care Get prompt medical attention if any of these occur: Increasing pain in the wound Redness, swelling, or pus coming from the wound Fever of 100.4F (38C) or higher, or as directed by your health care provider If stitches or randy come apart or fall out before your next appointment If the surgical tape closures fall off within seven days, or the wound edges re-open Bleeding not controlled by direct pressure You have been given the following additional information: Laceration, All Laceration, Extrem (Suture, Staple, Or Tape) (Electronically signed by Nancy Nation A.R.N.P. 06/20/2016 19:34)
== END 2016-06-20 18:31 | disposition home or self-care (01) ==
LOC: ED SRH 18:02
DX: S61.412A Laceration without foreign body of left hand, initial encounter (principal); W26.0XXA Contact with knife, initial encounter; Y92.9 Unspecified place or not applicable; Y99.9 Unspecified external cause status; F17.210 Nicotine dependence, cigarettes, uncomplicated